=== PATIENT | male | born 1950 | race American Indian/Alaskan Native ===

== ENCOUNTER 2018-07-15 07:29 | Emergency (ER) | payer BC ==
[2018-07-15 07:29] VITALS: BMI 33.2
[2018-07-15 07:43] VITALS: O2SAT 96
[2018-07-15] MEDS ORDERED: Oxycodone/Acetaminophen 5/325 mg Tab PO STA (08:11)
[2018-07-15] MEDS ORDERED: Oxycodone/Acetaminophen 5/325 mg Tab ONE (08:23)
--- NOTE | 2018-07-15 08:48 | C.PDOC ---
History Of Present Illness 67 y/o male, w/PMhx of gout and diabetes, brought to ER by ambulance for evaluation of pain and swelling to bilateral feet which has been present for 3 days. Patient states that he had a recent study for peripheral vascular disease done by Dr. Yi. Patient reports that he has an appointment with his PMD, , today. Denies having weakness and numbness. Time Seen by Provider: 07/15/18 07:38 Chief Complaint (Nursing): Lower Extremity Problem/Injury History Per: Patient History/Exam Limitations: no limitations Onset/Duration Of Symptoms: Days Current Symptoms Are (Timing): Still Present Severity: Moderate Past Medical History Reviewed: Historical Data, Nursing Documentation, Vital Signs Vital Signs: Last Vital Signs Temp 99 F 07/15/18 07:38 Pulse 104 H 07/15/18 07:38 Resp 20 07/15/18 07:38 BP 149/101 H 07/15/18 07:38 Pulse Ox 96 07/15/18 10:00 - Medical History PMH: Asthma, COPD, Diabetes, Deep Vein Thrombosis, HTN Denies: Chronic Kidney Disease Family History: States: Unknown Family Hx - Social History Hx Tobacco Use: Yes Hx Alcohol Use: Yes Hx Substance Use: No - Immunization History Hx Tetanus Toxoid Vaccination: No Hx Influenza Vaccination: Yes Hx Pneumococcal Vaccination: Yes Review Of Systems Except As Marked, All Systems Reviewed And Found Negative. Constitutional: Negative for: Fever, Chills Musculoskeletal: Positive for: Foot Pain Neurological: Negative for: Weakness, Numbness Physical Exam - Physical Exam Appears: Non-toxic, No Acute Distress Skin: Normal Color, Warm, Dry Head: Atraumatic, Normacephalic Eye(s): bilateral: Normal Inspection Nose: Normal Oral Mucosa: Moist Neck: Supple Chest: Symmetrical Cardiovascular: Rhythm Regular Respiratory: Normal Breath Sounds, No Rales, No Rhonchi, No Wheezing Extremity: Normal ROM, Tenderness (tenderness around 1st metatarsal of bilateral feet), Other (erythema to left foot) Neurological/Psych: Oriented x3, Normal Speech ED Course And Treatment O2 Sat by Pulse Oximetry: 96 (RA) Pulse Ox Interpretation: Normal Progress Note: Labs ordered but unable to get IV access, Patient reports he had blood work yesterday at his PMD office and everything was normal. Treated with percocet and toradol. Patient has appointment today with his PMD. Discharged in stable approved condition Reassessment Condition: Improved Medical Decision Making Medical Decision Making: Plan: --Labs --Toradol IV --Acetaminophen PO Disposition Counseled Patient/Family Regarding: Diagnosis, Need For Followup, Rx Given - Disposition Referrals: Podiatry Clinic [Outside] Disposition: HOME/ ROUTINE Disposition Time: 10:00 Condition: STABLE Additional Instructions: Follow up with your PMD for further evaluation Take medication as directed Prescriptions: Naproxen [Naprosyn] 1 tab PO BID PRN #25 tab PRN Reason: Pain Instructions: Gout, Lifestyle Changes to Manage Gout Forms: [employer] ([employer]) - POA Present On Arrival: None - Clinical Impression Clinical Impression: Joint pain, Gout - PA / HEAD OF [employer] / Resident Statement MD/DO has reviewed & agrees with the documentation as recorded. - Scribe Statement The provider has reviewed the documentation as recorded by the Skylar Khoury Provider Attestation All medical record entries made by the Radhaibe were at my direction and personally dictated by me. I have reviewed the chart and agree that the record accurately reflects my personal performance of the history, physical exam, medical decision making, and the department course for this patient. I have also personally directed, reviewed, and agree with the discharge instructions and disposition.
[2018-07-15 13:35] VITALS: BP 130/81; PULSE 97; RESP 18; TEMP 98.1
== END 2018-07-15 10:00 | disposition home or self-care (01) ==
LOC: C.ER 07:29
DX: M10.9 Gout, unspecified (principal); M25.572 Pain in left ankle and joints of left foot; M25.571 Pain in right ankle and joints of right foot
CPT/HCPCS: 96372; 99283; J1885